=== PATIENT | male | born 1990 | race Caucasian/White ===

== ENCOUNTER 2016-04-20 03:50 | Inpatient (IN) | payer OTHER ==
[~2016-04-20] VITALS: Ht 185.4 cm; Wt 83.5 kg
[~2016-04-20 03:50] MED LIST: HYDROCODON-ACE1 EAC7 PO; ZOFRAN ODT4 MG PO
[2016-04-20 04:37] LABS: HEMATOCRIT 41.4 % (38.0-50.0); MCH 31.8 PG (29.0-34.0); MCHC 34.8 G/DL (30.0-36.0); MCV 91.4 FL (86-99); MEAN PLAT.VOLUME 10.3 uM^3 (9.0-12.4); PLATELET COUNT 230 K/uL (156-360); RBC DIS.WIDTH-CV 11.6 % (11.8-14.6); RBC DIS.WIDTH-SD 38.2 % (39-53); RED BLOOD COUNT 4.53 M/uL (4.00-5.50); WHITE BLOOD COUNT 13.9 K/uL (4.1-10.2)
[2016-04-20 04:46] LABS: ADD MIUA? YES; BILIRUBIN NEGATIVE; BLOOD LARGE; COLOR STRAW ((YELLOW)); GLUCOSE (STRIP) NEGATIVE; KETONES NEGATIVE; LEUKOCYTES NEGATIVE; NITRITE NEGATIVE; PROTEIN (STRIP) 30; SPECIFIC GRAVITY 1.003 (1.000-1.030); UROBILINOGEN 0.2 MG/DL (0.2-1.0)
[2016-04-20 04:51] LABS: CHLORIDE 103 mEq/L (99-109); POTASSIUM 4.6 mEq/L (3.7-5.4); SODIUM 138 mEq/L (136-147)
[2016-04-20 04:53] LABS: GLUCOSE 90 mg/dL (70-99)
[2016-04-20 04:54] LABS: BACTERIA RARE /HPF; EPITHELIAL CELLS NONE SEEN /HPF; MUCUS NONE SEEN /LPF; RED BLOOD CELLS 0-5 /HPF (0-5); UCUL ADDED? NO; WHITE BLOOD CELLS 0-5 /HPF (0-5)
[2016-04-20 04:55] LABS: ANION GAP 9 MEQ/L (2-14); TOTAL BILIRUBIN 0.8 mg/dL (0.0-1.0)
[2016-04-20 04:55] LABS: CASTS NONE SEEN /LPF; CRYSTALS NONE SEEN
[2016-04-20 04:57] LABS: ALKALINE PHOSPHATASE 51 IU/L (3-129); GFR ESTIMATE (CALCULATED) > 59 mL/min/
[2016-04-20 04:58] LABS: UREA NITROGEN (BUN) 25 mg/dL (9-23)
[2016-04-20 06:25] LABS: CREATINE KINASE 24291 IU/L (1-294)
[2016-04-20 06:53] LABS: SALICYLATE < 5.0 MG/DL (15-30)
[2016-04-20 07:02] LABS: AMPHETAMINE NEGATIVE (500 ng/mL); BARBITURATES NEGATIVE (200 ng/mL); BENZODIAZEPINES NEGATIVE (150 ng/mL); COCAINE NEGATIVE (150 ng/mL); INTERNAL CONTROLS VALID? YES; METHADONE NEGATIVE (200 ng/mL); METHAMPHETAMINE NEGATIVE (500 ng/mL); OPIATES (MORPHINE) NEGATIVE (100 ng/mL); OXYCODONE NEGATIVE (100 ng/mL); PHENCYCLIDINE NEGATIVE (25 ng/mL); PROPOXYPHENE NEGATIVE (300 ng/mL); THC CANNABINOIDS NEGATIVE (50 ng/mL); TRICYCLIC ANTIDEPRESSANTS NEGATIVE (300 ng/mL)
[2016-04-20 07:07] LABS: TROP-I INTERPRETATION NEGATIVE; TROPONIN-I 0.02 ng/mL (0.0-0.30)
[2016-04-20] MEDS ORDERED: ZORVOLEX35 MG PO (08:26)
[2016-04-20] MEDS ORDERED: ADDERALL XR 3030 MG PO (08:26)
[2016-04-20] MEDS ORDERED: MEDROL DOSEPAK4 MG PO (08:26)
[2016-04-20] MEDS ORDERED: LYRICA50 MG PO (08:27)
[2016-04-20 15:45] VITALS: BP 147/82
[2016-04-20 19:07] LABS: CREATINE KINASE 78400 IU/L (1-294); TOTAL CK 78400 IU/L (1-294)
[2016-04-20 19:26] LABS: CK-MB 31.9 ng/mL (0.0-4.9)
[2016-04-20 19:48] VITALS: BP 138/72
[2016-04-20 20:40] LABS: INTER. NORMALIZED RATIO 1.1; PROTHROMBIN TIME 11.4 (9.2-11.2); PTT 25.2 (25-32)
[2016-04-20 20:47] LABS: ANION GAP 7 MEQ/L (2-14); CHLORIDE 107 MEQ/L (99-109); POTASSIUM 4.2 MEQ/L (3.7-5.4); SAMPLE HEMOLYSIS CHECK 0; SAMPLE ICTERIC CHECK 0; SAMPLE LIPEMIA CHECK 0; SODIUM 141 MEQ/L (136-147); TOTAL BILIRUBIN 0.7 MG/DL (0.0-1.0)
[2016-04-20 20:53] LABS: ALKALINE PHOSPHATASE 38 IU/L (3-129); GFR ESTIMATE (CALCULATED) > 59 mL/min/; GLUCOSE 91 mg/dL (70-99); UREA NITROGEN (BUN) 11 mg/dL (9-23)
[2016-04-21 00:15] VITALS: BP 152/84
[2016-04-21 00:47] LABS: HEMATOCRIT 38.1 % (38.0-50.0); MCH 31.6 PG (29.0-34.0); MCHC 34.1 G/DL (30.0-36.0); MCV 92.7 FL (86-99); MEAN PLAT.VOLUME 10.7 uM^3 (9.0-12.4); PLATELET COUNT 200 K/uL (156-360); RBC DIS.WIDTH-CV 11.8 % (11.8-14.6); RBC DIS.WIDTH-SD 38.7 % (39-53); RED BLOOD COUNT 4.11 M/uL (4.00-5.50); WHITE BLOOD COUNT 10.9 K/uL (4.1-10.2)
[2016-04-21 00:57] LABS: CHLORIDE 107 mEq/L (99-109); POTASSIUM 3.6 mEq/L (3.7-5.4); SODIUM 140 mEq/L (136-147)
[2016-04-21 00:59] LABS: GLUCOSE 83 mg/dL (70-99)
[2016-04-21 01:01] LABS: ANION GAP 10 MEQ/L (2-14); TOTAL BILIRUBIN 0.8 mg/dL (0.0-1.0)
[2016-04-21 01:03] LABS: ALKALINE PHOSPHATASE 43 IU/L (3-129); GFR ESTIMATE (CALCULATED) > 59 mL/min/
[2016-04-21 01:04] LABS: UREA NITROGEN (BUN) 11 mg/dL (9-23)
[2016-04-21 04:14] VITALS: BP 132/82
[2016-04-21 07:57] VITALS: BP 127/69
[2016-04-21 08:36] LABS: CHLORIDE 108 mEq/L (99-109); POTASSIUM 3.8 mEq/L (3.7-5.4); SODIUM 141 mEq/L (136-147)
[2016-04-21 08:39] LABS: GLUCOSE 74 mg/dL (70-99)
[2016-04-21 08:40] LABS: ANION GAP 10 MEQ/L (2-14)
[2016-04-21 08:41] LABS: TOTAL BILIRUBIN 0.8 mg/dL (0.0-1.0)
[2016-04-21 08:42] LABS: ALKALINE PHOSPHATASE 42 IU/L (3-129); GFR ESTIMATE (CALCULATED) > 59 mL/min/
[2016-04-21 08:43] LABS: UREA NITROGEN (BUN) 10 mg/dL (9-23)
[2016-04-21 08:52] LABS: CK-MB 23.1 ng/mL (0.0-4.9)
[2016-04-21 09:36] LABS: CREATINE KINASE 129100 IU/L (1-294); TOTAL CK 129100 IU/L (1-294)
[2016-04-21 10:30] LABS: HBSG INDEX 0.17
[2016-04-21 10:31] LABS: HPCA INDEX 0.13
[2016-04-21 10:32] LABS: ANTI-HEPATITIS A VIRUS (IGM) Nonreactive; ANTI-HEPATITIS B CORE (IGM) Nonreactive; HAV INDEX 0.14; HBC IgM INDEX 0.07
[2016-04-21 12:00] VITALS: BP 144/88
[2016-04-21 16:00] VITALS: BP 153/83
[2016-04-21 19:42] VITALS: BP 141/82
[2016-04-22 00:01] VITALS: BP 138/87
[2016-04-22 03:52] VITALS: BP 143/72
[2016-04-22 07:39] LABS: ANION GAP 7 MEQ/L (2-14); CHLORIDE 99 MEQ/L (99-109); GFR ESTIMATE (CALCULATED) > 59 mL/min/; MAGNESIUM 2.2 mg/dl (1.3-2.7); POTASSIUM 3.4 MEQ/L (3.7-5.4); SAMPLE HEMOLYSIS CHECK 0; SAMPLE ICTERIC CHECK 0; SAMPLE LIPEMIA CHECK 0; SODIUM 142 MEQ/L (136-147); UREA NITROGEN (BUN) 9 mg/dL (9-23)
[2016-04-22 07:41] LABS: GLUCOSE 104 mg/dL (70-99)
[2016-04-22 07:47] LABS: MCH 31.9 PG (29.0-34.0); MCHC 34.3 G/DL (30.0-36.0); MEAN PLAT.VOLUME 11.4 uM^3 (9.0-12.4); PLATELET COUNT 210 K/uL (156-360); RBC DIS.WIDTH-CV 11.9 % (11.8-14.6); RBC DIS.WIDTH-SD 40.1 % (39-53)
[2016-04-22 07:50] LABS: WHITE BLOOD COUNT 6.8 K/uL (4.1-10.2)
[2016-04-22 08:00] VITALS: BP 152/84
[2016-04-22 11:04] LABS: CREATINE KINASE 133700 IU/L (1-294)
[2016-04-22 11:30] VITALS: BP 146/85
[2016-04-22 16:00] VITALS: BP 150/87
[2016-04-22 16:24] LABS: VENOUS PCO2 70 mm Hg (41-51)
[2016-04-22 16:26] LABS: CARBON DIOXIDE (BICARBONATE) > 40.0 MEQ/L (20-31)
[2016-04-22 16:47] LABS: CHLORIDE 98 MEQ/L (99-109); GFR ESTIMATE (CALCULATED) > 59 mL/min/; GLUCOSE 121 mg/dL (70-99); SODIUM 141 MEQ/L (136-147); UREA NITROGEN (BUN) 12 mg/dL (9-23)
[2016-04-22 16:48] LABS: POTASSIUM 4.3 MEQ/L (3.7-5.4)
[2016-04-22 16:53] LABS: ANION GAP 6 MEQ/L (2-14); SAMPLE HEMOLYSIS CHECK 0; SAMPLE ICTERIC CHECK 0; SAMPLE LIPEMIA CHECK 0
[2016-04-22 17:41] LABS: CREATINE KINASE 151750 IU/L (1-294)
[2016-04-22 20:18] VITALS: BP 156/73
[2016-04-23 00:28] VITALS: BP 166/80
[2016-04-23 07:40] VITALS: BP 131/75
[2016-04-23 08:56] LABS: ALKALINE PHOSPHATASE 41 IU/L (3-129); ANION GAP 7 MEQ/L (2-14); CHLORIDE 106 MEQ/L (99-109); DIRECT BILIRUBIN 0.1 mg/dL (0.0-0.3); GFR ESTIMATE (CALCULATED) > 59 mL/min/; GLUCOSE 92 mg/dL (70-99); SAMPLE HEMOLYSIS CHECK 0; SAMPLE ICTERIC CHECK 0; SAMPLE LIPEMIA CHECK 0; SODIUM 142 MEQ/L (136-147); TOTAL BILIRUBIN 0.6 MG/DL (0.0-1.0); UREA NITROGEN (BUN) 10 mg/dL (9-23)
[2016-04-23 08:59] LABS: POTASSIUM 5.3 MEQ/L (3.7-5.4)
[2016-04-23 10:35] LABS: CREATINE KINASE 113100 IU/L (1-294)
[2016-04-23 15:40] VITALS: BP 134/67
[2016-04-23 16:43] LABS: CHLORIDE 106 mEq/L (99-109); POTASSIUM 4.5 mEq/L (3.7-5.4); SODIUM 140 mEq/L (136-147)
[2016-04-23 16:45] LABS: GLUCOSE 88 mg/dL (70-99)
[2016-04-23 16:47] LABS: ANION GAP 7 MEQ/L (2-14)
[2016-04-23 16:49] LABS: GFR ESTIMATE (CALCULATED) > 59 mL/min/
[2016-04-23 16:50] LABS: UREA NITROGEN (BUN) 11 mg/dL (9-23)
[2016-04-23 19:56] LABS: CREATINE KINASE > 100000 IU/L (1-294)
[2016-04-24 00:50] VITALS: BP 154/94
[2016-04-24 08:15] VITALS: BP 127/82
[2016-04-24 08:47] LABS: HEMATOCRIT 39.5 % (38.0-50.0); MCHC 33.9 G/DL (30.0-36.0); MCV 94.3 FL (86-99); PLATELET COUNT 213 K/uL (156-360); RBC DIS.WIDTH-CV 11.7 % (11.8-14.6); RBC DIS.WIDTH-SD 39.7 % (39-53); RED BLOOD COUNT 4.19 M/uL (4.00-5.50); WHITE BLOOD COUNT 7.6 K/uL (4.1-10.2)
[2016-04-24 08:55] LABS: ANION GAP 9 MEQ/L (2-14); CHLORIDE 103 MEQ/L (99-109); GFR ESTIMATE (CALCULATED) > 59 mL/min/; GLUCOSE 76 mg/dL (70-99); POTASSIUM 4.4 MEQ/L (3.7-5.4); SAMPLE HEMOLYSIS CHECK 0; SAMPLE ICTERIC CHECK 0; SAMPLE LIPEMIA CHECK 0; SODIUM 141 MEQ/L (136-147); UREA NITROGEN (BUN) 10 mg/dL (9-23)
[2016-04-24 08:56] LABS: ANION GAP 7 MEQ/L (2-14); CHLORIDE 103 MEQ/L (99-109); GFR ESTIMATE (CALCULATED) > 59 mL/min/; GLUCOSE 74 mg/dL (70-99); POTASSIUM 4.4 MEQ/L (3.7-5.4); SAMPLE HEMOLYSIS CHECK 0; SAMPLE ICTERIC CHECK 0; SAMPLE LIPEMIA CHECK 0; SODIUM 140 MEQ/L (136-147); UREA NITROGEN (BUN) 10 mg/dL (9-23)
[2016-04-24 10:34] LABS: CREATINE KINASE 89200 IU/L (1-294)
[2016-04-24 16:30] VITALS: BP 136/71
[2016-04-25] VITALS: BP 131/71
[2016-04-25 06:45] LABS: HEMATOCRIT 40.7 % (38.0-50.0); MCH 32.4 PG (29.0-34.0); MCHC 34.6 G/DL (30.0-36.0); MCV 93.6 FL (86-99); MEAN PLAT.VOLUME 10.4 uM^3 (9.0-12.4); PLATELET COUNT 235 K/uL (156-360); RBC DIS.WIDTH-CV 11.7 % (11.8-14.6); RBC DIS.WIDTH-SD 39.6 % (39-53); RED BLOOD COUNT 4.35 M/uL (4.00-5.50); WHITE BLOOD COUNT 7.8 K/uL (4.1-10.2)
[2016-04-25 07:21] LABS: ALKALINE PHOSPHATASE 36 IU/L (3-129); ANION GAP 6 MEQ/L (2-14); CHLORIDE 103 MEQ/L (99-109); DIRECT BILIRUBIN 0.1 mg/dL (0.0-0.3); GFR ESTIMATE (CALCULATED) > 59 mL/min/; GLUCOSE 84 mg/dL (70-99); POTASSIUM 4.8 MEQ/L (3.7-5.4); SAMPLE HEMOLYSIS CHECK 0; SAMPLE ICTERIC CHECK 0; SAMPLE LIPEMIA CHECK 0; SODIUM 140 MEQ/L (136-147); UREA NITROGEN (BUN) 12 mg/dL (9-23)
[2016-04-25 07:25] LABS: TOTAL BILIRUBIN 0.4 MG/DL (0.0-1.0)
[2016-04-25 07:49] VITALS: BP 114/58
[2016-04-25 15:07] VITALS: BP 123/62
[2016-04-26] VITALS: BP 130/65
[2016-04-26 04:29] LABS: CHLORIDE 105 mEq/L (99-109); POTASSIUM 4.1 mEq/L (3.7-5.4); SODIUM 138 mEq/L (136-147)
[2016-04-26 04:32] LABS: GLUCOSE 78 mg/dL (70-99)
[2016-04-26 04:33] LABS: ANION GAP 8 MEQ/L (2-14)
[2016-04-26 04:34] LABS: TOTAL BILIRUBIN 0.6 mg/dL (0.0-1.0)
[2016-04-26 04:36] LABS: ALKALINE PHOSPHATASE 40 IU/L (3-129); GFR ESTIMATE (CALCULATED) > 59 mL/min/
[2016-04-26 04:37] LABS: DIRECT BILIRUBIN 0.3 mg/dL (0.0-0.3); UREA NITROGEN (BUN) 11 mg/dL (9-23)
[2016-04-26 08:48] VITALS: BP 124/80
[2016-04-26 18:44] VITALS: BP 137/73
[2016-04-26 20:00] VITALS: BP 129/71
[2016-04-27 06:43] LABS: ANION GAP 9 MEQ/L (2-14); CHLORIDE 104 MEQ/L (99-109); GFR ESTIMATE (CALCULATED) > 59 mL/min/; GLUCOSE 79 mg/dL (70-99); POTASSIUM 3.7 MEQ/L (3.7-5.4); SAMPLE HEMOLYSIS CHECK 0; SAMPLE ICTERIC CHECK 0; SAMPLE LIPEMIA CHECK 0; SODIUM 138 MEQ/L (136-147); UREA NITROGEN (BUN) 13 mg/dL (9-23)
[2016-04-27 08:16] LABS: CREATINE KINASE 10011 IU/L (1-294)
[2016-04-27 08:21] VITALS: BP 128/56
[2016-04-27 10:47] LABS: ALKALINE PHOSPHATASE 29 IU/L (3-129); DIRECT BILIRUBIN 0.1 mg/dL (0.0-0.3)
[2016-04-27 10:48] LABS: TOTAL BILIRUBIN 0.6 MG/DL (0.0-1.0)
[2016-04-27 16:18] VITALS: BP 135/74
== END 2016-04-27 16:52 | disposition home or self-care (01) | DRG 565 ==
LOC: EME 03:50 → 5SOUTH 09:54 → EDOF 09:54 → 5SOUTH 15:24
PROVIDERS: Internal Medicine; Internal Medicine Nephrology; Nurse Practitioner Family; Physician Assistant
DX: T79.6XXA Traumatic ischemia of muscle, initial encounter (principal); E87.3 Alkalosis; Y93.B9 Activity, other involving muscle strengthening exercises; R74.0 Nonspecific elevation of levels of transaminase and lactic acid dehydrogenase [LDH]; R79.89 Other specified abnormal findings of blood chemistry; E87.6 Hypokalemia; N20.0 Calculus of kidney; F90.8 Attention-deficit hyperactivity disorder, other type; T43.625A Adverse effect of amphetamines, initial encounter
CPT/HCPCS: 74176; 76705; 80048 91; 80053; 80069; 80074; 80076; 81003; 82550; 82550 91; 82553; 82803; 83735; 84100; 84443; 84450; 84460; 84484; 85027; 85610; 85730; 93005; 99281; 99285; G0480; J1650; J2270; J7030; J7070